=== PATIENT | male | born 1980 | race Two or more races ===

== ENCOUNTER 2023-08-21 17:14 | Inpatient (IN) | payer OTHER ==
[2023-08-21 18:16] VITALS: BMI 26.6
[2023-08-22] MEDS ORDERED: BISMUTH SUBSALICYLATE 524 MG/30 ML PO PRN (01:24)
[2023-08-22] MEDS ORDERED: METHOCARBAMOL 500 MG TABLET PO PRN (01:24)
[2023-08-22] MEDS ORDERED: MAG HYDROX/AL HYDROX/SIMETH 30 ML UNIT-DOSE CUP PO PRN (01:24)
[2023-08-22] MEDS ORDERED: IBUPROFEN 600 MG TABLET (FP) PO PRN (01:24)
[2023-08-22] MEDS ORDERED: BENZONATATE 200 MG CAPSULE PO PRN (01:24)
[2023-08-22] MEDS ORDERED: LOPERAMIDE HCL 2 MG CAPSULE PO PRN (01:24)
[2023-08-22] MEDS ORDERED: IBUPROFEN 400 MG TABLET (FP) PO PRN (01:24)
[2023-08-22] MEDS ORDERED: NALOXONE HCL 0.4 MG/ML VIAL IM PRN (01:24)
[2023-08-22] MEDS ORDERED: MAGNESIUM HYDROX 2400MG/30ML ORAL SUSPENSION 30 ML CUP PO PRN (01:24)
[2023-08-22] MEDS ORDERED: POLYETHYLENE GLYCOL (HEALTHYLAX) 3350 17 GM PACKET PO PRN (01:24)
[2023-08-22] MEDS ORDERED: DICYCLOMINE HCL 10 MG CAPSULE PO PRN (01:24)
[2023-08-22] MEDS ORDERED: guaiFENesin 600 MG TABLET.ER (FP) PO PRN (01:24)
[2023-08-22] MEDS ORDERED: hydrOXYzine PAMOATE 25 MG CAPSULE (FP) PO PRN (01:24)
[2023-08-22] MEDS ORDERED: BENZOCAINE/MENTHOL (CHLORASEPTIC ) LOZENGE MM PRN (01:24)
[2023-08-22] MEDS ORDERED: ACETAMINOPHEN 325 MG TABLET (FP) PO PRN (01:24)
[2023-08-22] MEDS ORDERED: NALOXONE HCL (KLOXXADO) 8 MG SPRAY NS PRN (01:24)
[2023-08-22] MEDS ORDERED: cloNIDine HCL 0.1 MG TABLET PO PRN (01:27)
[2023-08-22] MEDS ORDERED: methaDONE HCL 10 MG TABLET (FOR DETOX USE ONLY) PO ONE (01:27)
[2023-08-22] MEDS ORDERED: methaDONE HCL 10 MG TABLET (FOR DETOX USE ONLY) ONE (01:47)
[2023-08-22] MEDS ORDERED: PRENATAL VITAMINS W/ FOLIC ACID TABLET (FP) PO SCH (10:00)
[2023-08-22] MEDS: ONDANSETRON *ODT* 4 MG TABLET SL PRN (12:06)
[2023-08-22] MEDS ORDERED: MELATONIN 5 MG TABLETS PO SCH (22:00)
[2023-08-22] MEDS ORDERED: THIAMINE HCL 100 MG TABLET (FP) PO SCH (22:00)
[2023-08-23] MEDS ORDERED: TRIMETHOBENZAMIDE HCL 200MG/2ML INJ IM ONE (01:33)
[2023-08-23] MEDS: ONDANSETRON *ODT* 4 MG TABLET SL PRN (03:50)
[2023-08-23 03:53] VITALS: BP 133/79; PULSE 54; RESP 16; TEMP 97.8
[2023-08-23] MEDS ORDERED: methaDONE HCL 10 MG TABLET (FOR DETOX USE ONLY) PO ONE (03:53)
[2023-08-24] MEDS ORDERED: methaDONE HCL 10 MG TABLET (FOR DETOX USE ONLY) PO ONE (10:00)
[2023-08-26] MEDS ORDERED: methaDONE HCL 10 MG TABLET (FOR DETOX USE ONLY) PO ONE (10:00)
== END 2023-08-23 06:55 | disposition left against medical advice (07) | DRG 770 ==
LOC: EDBD 17:14 → YASAS 17:14 → Y3N 08-22 02:11
PROVIDERS: ADMIT Allergy & Immunology; ATTEND Allergy & Immunology
PROC: HZ2ZZZZ Detoxification Services for Substance Abuse Treatment (ICD-10-PCS; principal; 2023-08-22)
DX: F11.23 Opioid dependence with withdrawal (principal); F14.20 Cocaine dependence, uncomplicated; Z87.891 Personal history of nicotine dependence
CPT/HCPCS: 36415; 80307; 87635; 87811; 93005; 93010; Q0162